=== PATIENT | male | born 1980 | race Caucasian/White ===

== ENCOUNTER 2023-02-26 14:47 | Outpatient (RCR) | payer OTHER | END 2023-03-11 | disposition home or self-care (01) | LOC: WSOH | DX: S39.012D Strain of muscle, fascia and tendon of lower back, subsequent encounter (principal); S76.012D Strain of muscle, fascia and tendon of left hip, subsequent encounter; M51.36 Other intervertebral disc degeneration, lumbar region; Y99.0 Civilian activity done for income or pay; I11.9 Hypertensive heart disease without heart failure; E78.00 Pure hypercholesterolemia, unspecified ==